=== PATIENT | female | born 1990 | race Caucasian/White ===

== ENCOUNTER 2020-04-15 14:40 | Emergency (ER) | payer SELFPAY ==
[2020-04-15] VITALS (7 sets, daily range): BP systolic 102–116; BP diastolic 45–83; PULSE 67–89; RESP 14–18; TEMP 36.6–37.1; O2SAT 99–100; BMI 20.3
--- NOTE | 2020-04-15 16:44 | ED_ITS ---
HPI - General: Chief complaint: Vaginal Bleeding Stated complaint: cramping and bleeding Time Seen by Provider: 04/15/20 16:25 History of Present Illness: HPI Narrative: This patient is a 29-year-old female who is a G2, P4 presenting today with vaginal bleeding. Her last normal period was in January. She took a test at the end of February and it was positive. She has not seen a doctor yet and is trying to get her Medicaid set up. She has not been having vomiting or fever. No urinary symptoms. She had some bright red bleeding today for the past 3 hours. She is had some cramping in her pelvis. MD Complaint: vaginal bleeding Onset (ago): hour(s) (3) Pain Consistency: constant Location: pelvis Severity: mild Quality: Cramping Radiation: pelvis Associated symptoms: Reports abdominal pain; Deny headache(s), malaise, nausea or vomiting Review of Systems General: Reports: 10 or more systems reviewed and unremarkable except in HPI and below Const: Denies: fever(s), chills, fatigue or malaise Eyes: Denies: change in vision ENMT: Denies: odynophagia Card: Denies: chest pain or swelling of feet/ankles Resp: Denies: dyspnea, productive cough or non-productive cough GI: Reports: abdominal pain; Denies: nausea or vomiting : Reports: vaginal bleeding; Denies: flank pain or difficulty voiding Musc: Denies: neck pain or back pain Skin/Breast: Denies: rash Neuro: Denies: headache(s), numbness in extremities or weakness in extremities Rajiv/Lymph: Denies: easy bruising or easy bleeding Physical Exam Const: COMMON NORMALS: no acute distress, patient oriented x3, no limitations and alert GENERAL APPEARANCE: cooperative and comfortable HENMT: HEAD & SCALP: normal to inspection FACE & SINUS: normal facial exam Eye: GENERAL EYE: appearance normal, both eyes and all related structures Neck/C-Spine: COMMON NORMALS: supple, no meningeal signs and no JVD Chest: COMMONS NORMALS: normal inspection of the chest Resp: COMMON NORMALS: normal respiratory effort, No use of accessory muscles and clear to auscultation bilaterally AUSCULTATION: clear to auscultation bilaterally Cardio: COMMON NORMALS: no JVD, regular rate, regular rhythm and No murmurs present (Cardio) RATE: regular rate RHYTHM: regular rhythm GI: COMMON NORMALS: Normal to inspection, nondistended, normoactive bowel sounds present, Soft to palpation and non-tender INSPECTION: Yes normal to inspection AUSCULTATION: Yes normoactive bowel sounds PALPATION: Yes Soft to palpation Back/Pelvis: COMMON NORMALS: thoracic and lumbar spine normal to inspection Extremity: COMMON NORMALS: normal to inspection Neuro: COMMON NORMALS: patient oriented x3, moves all extremities, no focal motor deficits and no sensory deficits noted SENSORIUM/ORIENTATION: Yes alert MENINGEAL SIGNS: Yes no meningeal signs Psych: COMMON NORMALS: mental status grossly normal, cooperative and normal affect Skin: COMMON NORMALS: no rashes or lesions noted and turgor normal GENERAL SKIN EXAM: no rashes or lesions noted and turgor normal Course ED course: Ultrasound shows an 11 weeks 0-day with good heartbeat. No abnormalities noted on ultrasound. The patient thinks that she has gotten RhoGam before with prior pregnancies. I could not find any record of her blood type even on the OB notes from her prior . I suspect she is going to be negative and I have RhoGam ordered pending test results. Urinalysis showed trichomoniasis and this was discussed with the patient and her partner. Treatment was provided and she understands that she needs to follow-up with her OB as soon as possible. She plans to go to [facility]. Vital Signs: Vital signs: Vital Signs Temperature 98.7 F 04/15/20 22:20 Pulse Rate 89 04/15/20 22:34 Respiratory Rate 18 04/15/20 22:34 Blood Pressure 116/83 04/15/20 22:34 Pulse Oximetry 99 04/15/20 22:34 MDM - OB/Uterine Contractions Lab Data: Labs: Lab Results 04/15/20 04/15/20 04/15/20 Range/Units 17:00 17:00 17:38 WBC 9.1 (4.0-10.0) 10^3/ uL RBC 4.41 (4.1-5.3) 10^6/u L Hgb 13.0 (11.5-15.3) g/dL Hct 38.6 (37.0-47.0) % MCV 87.5 (81-99) fL MCH 29.5 (28.0-34.0) pg MCHC 33.7 (30.0-36.0) g/dL RDW 12.1 (12.1-15.1) % Plt Count 233 (130-400) 10^3/c mm MPV 8.7 (7.4-10.4) fL Neut % (Auto) 64.3 % Lymph % (Auto) 29.0 % [place] % (Auto) 5.7 % Eos % (Auto) 0.5 % Baso % (Auto) 0.2 % Neut # (Auto) 5.84 (1.8-7.7) 10^3/u L Lymph # (Auto) 2.6 (0.8-4.8) 10^3/u L [place] # (Auto) 0.5 (0.2-0.9) 10^3/u L Eos # (Auto) 0.1 (0.0-0.8) 10^3/u L Baso # (Auto) 0.0 (0.0-0.1) 10^3/u L Nucleated RBC % (a uto) 0 % Nucleated RBCs # 0.0 /100WBC Sodium 136 (136-145) mmol/L Potassium 4.0 (3.5-5.1) mmol/L Chloride 102 (98-107) mmol/L Carbon Dioxide 24 (22-29) mmol/L Anion Gap 14.0 (5-19) BUN 7 (6-20) mg/dL Creatinine 0.5 (0.5-0.9) mg/dL GFR Calculation 148.0 H (90-130) mL/min Glucose 91 (65-115) mg/dL Calculated Osmolal ity 277 L (285-295) mOsm/k g Calcium 9.8 (8.5-10.5) mg/dL Total Bilirubin 0.4 (0.15-1.2) mg/dL AST 15 (0-32) U/L ALT 7 (0-33) U/L Alkaline Phosphata se 49 (35-105) IU/L Total Protein 7.4 (6.6-8.7) g/dL Albumin 4.4 (3.5-5.2) g/dL Globulin 3.0 (1.3-4.6) g/dL Ser , [place] 52658.00 mIU/mL Urine Color Yellow (Yellow) Urine Appearance Cloudy (CLEAR) Urine pH 6 (5-7) Ur Specific Gravit y 1.025 (1.005-1.030) Urine Protein Neg (Negative) Urine Glucose (UA) Norm (Normal) Urine Ketones Negative (Negative) Urine Blood 3+ H (Negative) Urine Nitrate Negative (Negative) Urine Bilirubin Neg (NEGATIVE) Urine Urobilinogen 1 H (Negative) mg/dL Ur Leukocyte Rosemary ase 1+ H (Negative) Urine RBC Too numerous to c nt H (0-2) /hpf Urine WBC 15-25 H (0-5) /hpf Ur Squamous Epith Cells 5-10 H (0-5) Amorphous Sediment Not Reportable Urine Bacteria 3+ H (NONE) Urine Trichomonas 1+ H Blood Type Rho(D) Type Antibody Screen 04/15/20 Range/Units 19:45 WBC (4.0-10.0) 10^3/ uL RBC (4.1-5.3) 10^6/u L Hgb (11.5-15.3) g/dL Hct (37.0-47.0) % MCV (81-99) fL MCH (28.0-34.0) pg MCHC (30.0-36.0) g/dL RDW (12.1-15.1) % Plt Count (130-400) 10^3/c mm MPV (7.4-10.4) fL Neut % (Auto) % Lymph % (Auto) % [place] % (Auto) % Eos % (Auto) % Baso % (Auto) % Neut # (Auto) (1.8-7.7) 10^3/u L Lymph # (Auto) (0.8-4.8) 10^3/u L [place] # (Auto) (0.2-0.9) 10^3/u L Eos # (Auto) (0.0-0.8) 10^3/u L Baso # (Auto) (0.0-0.1) 10^3/u L Nucleated RBC % (a uto) % Nucleated RBCs # /100WBC Sodium (136-145) mmol/L Potassium (3.5-5.1) mmol/L Chloride (98-107) mmol/L Carbon Dioxide (22-29) mmol/L Anion Gap (5-19) BUN (6-20) mg/dL Creatinine (0.5-0.9) mg/dL GFR Calculation (90-130) mL/min Glucose (65-115) mg/dL Calculated Osmolal ity (285-295) mOsm/k g Calcium (8.5-10.5) mg/dL Total Bilirubin (0.15-1.2) mg/dL AST (0-32) U/L ALT (0-33) U/L Alkaline Phosphata se (35-105) IU/L Total Protein (6.6-8.7) g/dL Albumin (3.5-5.2) g/dL Globulin (1.3-4.6) g/dL Ser , Mellisa i-Qnt mIU/mL Urine Color (Yellow) Urine Appearance (CLEAR) Urine pH (5-7) Ur Specific Gravit y (1.005-1.030) Urine Protein (Negative) Urine Glucose (UA) (Normal) Urine Ketones (Negative) Urine Blood (Negative) Urine Nitrate (Negative) Urine Bilirubin (NEGATIVE) Urine Urobilinogen (Negative) mg/dL Ur Leukocyte Rosemary ase (Negative) Urine RBC (0-2) /hpf Urine WBC (0-5) /hpf Ur Squamous Epith Cells (0-5) Amorphous Sediment Urine Bacteria (NONE) Urine Trichomonas Blood Type B Negative Rho(D) Type Negative Antibody Screen Negative Discharge Plan Discharge Patient Disposition: Home Clinical Impression: Threatened , Trichomonal vaginitis during in first trimester Condition: Stable Prescriptions: New metronidazole 500 mg tablet 500 mg PO BID 7 Days Qty: 14 RF: 0 Discharge Orders: Discharge Order (Routine); Ordered 04/15/20 Ordered By: Ethel Smith Discharge Diet: Usual diet Discharge Activity: Resume usual activity Patient Instructions: Threatened Miscarriage (ED), Trichomoniasis (ED) Activity Restrictions/Additional Instructions: Sexual partners need to be treated for trichomonas as well to prevent reinfection. Make sure you take all the antibiotics as prescribed. Infection can be associated with miscarriages. Establish care with an OB as soon as possible. Return to the emergency department for any new or worse symptoms. Discharge Date/Time: 04/15/20 22:30 Coding Level of Care Code ED Pollution Control Chemist for Kosta Fwd Exam Comprehensive
[2020-04-15 17:11] LABS: Basophils % 0.2 %; Eosinophils # 0.1 10^3/uL (0.0-0.8); Eosinophils % 0.5 %; Hematocrit 38.6 % (37.0-47.0); Lymphocytes # 2.6 10^3/uL (0.8-4.8); Mean Corpuscular HGB Conc 33.7 g/dL (30.0-36.0); Mean Corpuscular Hemoglobin 29.5 pg (28.0-34.0); Mean Corpuscular Volume 87.5 fL (81-99); Mean Platelet Volume 8.7 fL (7.4-10.4); Monocytes # 0.5 10^3/uL (0.2-0.9); Monocytes % 5.7 %; Neutrophils # 5.84 10^3/uL (1.8-7.7); Neutrophils % 64.3 %; Nucleated Red Blood Cells % 0 %; Platelet Count 233 10^3/cmm (130-400); Red Blood Count 4.41 10^6/uL (4.1-5.3); Red Cell Distribution Width 12.1 % (12.1-15.1); White Blood Count 9.1 10^3/uL (4.0-10.0)
[2020-04-15 17:43] LABS: Alanine Aminotransferase 7 U/L (0-33); Albumin Level 4.4 g/dL (3.5-5.2); Alkaline Phosphatase 49 IU/L (35-105); Aspartate Amino Transferase 15 U/L (0-32); Blood Urea Nitrogen 7 mg/dL (6-20); Calcium 9.8 mg/dL (8.5-10.5); Carbon Dioxide 24 mmol/L (22-29); Chloride 102 mmol/L (98-107); Glucose 91 mg/dL (65-115); Osmolality Calculated 277 mOsm/kg (285-295); Sodium 136 mmol/L (136-145); Total Bilirubin 0.4 mg/dL (0.15-1.2); Total Protein 7.4 g/dL (6.6-8.7)
[2020-04-15 17:55] LABS: Add Urine Microscopic? YES; Bilirubin Urine Neg (NEGATIVE); Blood Urine 3+ (Negative); Glucose Urine UA Norm (Normal); Ketones Urine Negative (Negative); Leukocyte Esterase Urine 1+ (Negative); Nitrate Urine Negative (Negative); Protein Urine Neg (Negative); Specific Gravity, Urine 1.025 (1.005-1.030); Urine Appearance Cloudy (CLEAR); Urine Color Yellow (Yellow); Urobilinogen Urine 1 mg/dL (Negative); pH Urine 6 (5-7)
[2020-04-15 17:56] LABS: RBC Urine TOO NUMEROUS TO CNT /hpf (0-2); WBC Urine 15-25 /hpf (0-5)
[2020-04-15 17:57] LABS: Add Urine Culture? Yes; Bacteria Urine 3+; Trichomonas Urine 1+
--- NOTE | 2020-04-15 18:31 | US_ITS ---
WS: [id number] OB ultrasound, 04/15/2020 Clinical Data: bleeding, cramping Comparison: None. Findings: There is a single interuterine . heart rate is 176 beats per minute. There is a yolk sac present. The crown-rump length measured 4.1 cm. The estimated gestational age 11w0d is with an HUNTER of approximately 11/04/2020. US/US OB <= 14 weeks fetus [id number] Impression: 1. Single interuterine . 2. Estimated gestational age of 11w0d with an HUNTER of 11/04/2020. 3. heart rate 176 beats per minute.
== END 2020-04-15 22:30 | disposition home or self-care (01) ==
PROVIDERS: Emergency Provider Emergency Medicine
DX: O20.0 Threatened abortion (principal); O98.311 Other infections with a predominantly sexual mode of transmission complicating pregnancy, first trimester; A59.01 Trichomonal vulvovaginitis; Z3A.11 11 weeks gestation of pregnancy
CPT/HCPCS: 12345; 36415; 76801; 80053; 81001; 84702; 85025; 86850; 86900; 87086; 90384; 99282; 99283

== ENCOUNTER 2020-10-30 23:43 | Inpatient (IN) | payer BC, MEDICAID, SELFPAY ==
[2020-10-30 23:35] VITALS: BMI 25.9
[2020-10-30 23:43] VITALS: PULSE 90; O2SAT 98
[2020-10-30 23:48] VITALS: PULSE 96; O2SAT 99
[2020-10-30 23:53] VITALS: PULSE 98; O2SAT 96
[2020-10-30] MEDS: dextrose 5%-lactated ringers 1,000 ML 125 ML IV (23:55)
[2020-10-30 23:58] VITALS: PULSE 87; O2SAT 99
[2020-10-30 23:59] VITALS: TEMP 36.3
[2020-10-31] VITALS (46 sets, daily range): BP systolic 91–126; BP diastolic 47–72; PULSE 59–104; RESP 14–20; TEMP 36.1–36.9; O2SAT 79–99
[2020-10-31] MEDS: oxytocin 30 UNIT/500 ML BAG 600 UNIT IV (00:17)
[2020-10-31 00:52] LABS: Basophils # 0.1 10^3/uL (0.0-0.1); Basophils % 0.3 %; Eosinophils % 0.1 %; Hematocrit 37.3 % (37.0-47.0); Hemoglobin 12.3 g/dL (11.5-15.3); Lymphocytes % 8.4 %; Mean Corpuscular Hemoglobin 28.3 pg (28.0-34.0); Mean Corpuscular Volume 85.9 fL (81-99); Mean Platelet Volume 9.5 fL (7.4-10.4); Monocytes # 1.3 10^3/uL (0.2-0.9); Monocytes % 5.4 %; Neutrophils # 20.44 10^3/uL (1.8-7.7); Neutrophils % 85.1 %; Nucleated Red Blood Cells % 0 %; Platelet Count 270 10^3/cmm (130-400); Red Blood Count 4.34 10^6/uL (4.1-5.3); Red Cell Distribution Width 12.4 % (12.1-15.1)
--- NOTE | 2020-10-31 01:13 | P.PCNOB_ITS ---
Delivery Note: Date of delivery: October 31, 2020 Pre-delivery diagnoses: 1. 3 para 2-0-0-2 2. 38 weeks estimated gestational age Post-delivery diagnoses: Status post spontaneous vaginal delivery Procedure: Spontaneous vaginal delivery Op report anesthesia: None Delivering Physician: Mack Bustamante Estimated blood loss (mL): 300 Pre-Delivery Course: The patient presented to the hospital at 8 cm dilated. I was then contacted and came to the hospital shortly thereafter. When I checked her she was found to have a bulging bag of fluid and a very stretchy 9 cm. An amniotomy was performed. The patient then pushed through the next 2 contractions uncontrollably. Delivery: DELIVERY: The patient progressed to complete without difficulty. She delivered a male with a weight of 5 pounds 5 ounces with Apgars of 7, 9. The baby was delivered from the HUMERA position and placed on the mother's abdomen. The baby's mouth and nose was then suctioned with a bulb syringe. The cord was then clamped and cut 1 minute after delivery. There was no nuchal cord. There was no meconium. The placenta and 2 vessel cord were delivered intact shortly thereafter. The perineum and vaginal vault were carefully examined. No lacerations were noted. Both the mother and the baby were in stable condition. A&P Assessment and plan (1) 38 weeks gestation of : Status: Acute (2) Spontaneous vaginal delivery: Status: Acute Coding Level of Care Code Acute Technician [employer] for Chg Fwd Diagnoses 38 weeks gestation of Z3A.38 Spontaneous vaginal delivery O80
[2020-10-31 01:16] LABS: Amphetamines Screen Urine Negative (Negative); Barbiturates Screen Urine Negative (Negative); Benzodiazepines Screen Urine Negative (Negative); Cocaine Screen Urine Negative (Negative); Opiate Screen Urine Negative (Negative); PCP Screen Urine Negative (Negative); THC Screen Urine Negative (Negative)
--- NOTE | 2020-10-31 01:17 | P.HP_ITS ---
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 She quickly progressed to complete and had an unremarkable delivery without anesthesia. She had heavier than normal bleeding after the delivery, but it did spontaneously resolve without further intervention. Earlier in her she expressed a desire to have a tubal ligation performed. She also signed the tubal ligation form over a month ago. We discussed the risks of bleeding, infection, and damage intra-abdominal organs. We discussed the 1 200 chance of becoming again after a tubal ligation. We discussed alternative forms of control. She had no further questions and wished to proceed. Her otherwise been unremarkable. Her labs have been unremarkable. She was GBS negative. Covid negative. Blood type was B-. She was THC positive with her initial drug screen but and subsequent drug screens was negative. 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 PFSH: Social History (Updated 10/31/20 @ 01:20 by Mack Bustamante MD) Substance/Drug Use: former Date of last use: THC positive on initial drug screen Vitals/I&O/Wt Last Vital Signs Temp 97.3 F L 10/30/20 23:59 Pulse 75 10/31/20 01:09 BP 103/59 10/31/20 01:09 Pulse Ox 79 L 10/31/20 00:12 10/30/20 10/30/20 10/31/20 14:59 22:59 06:59 Intake Total 300 / 300 Balance 300 / 300 Physical Exam Const: COMMON NORMALS: patient oriented x3 and alert HENMT: COMMON NORMALS: moist oral mucous membranes HEAD & SCALP: normal to inspection Chest: COMMONS NORMALS: normal inspection of the chest Resp: COMMON NORMALS: clear to auscultation bilaterally AUSCULTATION: clear to auscultation bilaterally Cardio: COMMON NORMALS: regular rate and regular rhythm RATE: regular rate RHYTHM: regular rhythm GI: INSPECTION: Yes normal to inspection and Yes other (Gravid) Extremity: COMMON NORMALS: normal to inspection GENERAL: Yes edema (Trace) Neuro: COMMON NORMALS: patient oriented x3, moves all extremities and no sensory deficits noted SENSORIUM/ORIENTATION: Yes alert Psych: COMMON NORMALS: mental status grossly normal Skin: COMMON NORMALS: no rashes or lesions noted GENERAL SKIN EXAM: no ra shes or lesions noted Data : 10/30/20 23:53 A&P Assessment and plan (1) Spontaneous vaginal delivery: Status: Acute (2) 38 weeks gestation of : Status: Acute (3) Sterilization consult: The patient will be n.p.o. Anticipate we will be doing sterilization at 9:00 in the morning. I discussed it with the hospital visor and she will notify the anesthesia provider as well as the surgical team. Status: Acute Attestations Medical Necessity Statement*: Routine and post tubal care. Anticipate she will go home tomorrow. Coding Level of Care Code Acute Reporting Coordinator for [employer] Diagnoses Spontaneous vaginal delivery O80 38 weeks gestation of Z3A.38 Sterilization consult Z30.09
[2020-10-31] MEDS: HYDROcodone-acetaminophen 5-325 mg Tablet PO ×3 (03:53→20:48)
--- NOTE | 2020-10-31 08:37 | ANES.PREANE2 ---
Pre-Anesthetic Assessment Pre-Anesthetic Assessment: Height/Weight: Height 1.57 m Weight 64.41 kg Temp Pulse Resp BP Pulse Ox 97.2 F L 69 18 95/47 97 10/31/20 05:24 10/31/20 06:18 10/31/20 05:45 10/31/20 06:18 10/31/20 06:18 Preop Diagnosis: female desiring sterilization Proposed Procedure: Operation Date: 10/31/20 09:10 Proposed Procedures p Post Bilateral Tubal Ligation(Bilateral) - Mack Bustamante MD Operation Date: 10/31/20 09:00 Proposed Procedures p Bilateral Tubal Ligation(Not Applicable) - Mack Bustamante MD Was Beta Kirby taken within 24 hours: N/A Social: Social History: Tobacco and No alcohol Exam: Pre-Anes Outpt Exam: alert, oriented x 3, clear to auscultation bilaterally and regular rate & rhythm Airway: Submandibular: WNL Cervical ROM: WNL MP: 2 Dentition: False Pulmonary: Pulmonary: COPD Anesthetic Plan: ASA status: 2 Anesthesia: General Other: Risk of > 500 ml blood loss (7ml/kg in children): No Meds/Allergies Current Medications: Current Medications Generic Name Dose Route Start Last Admin Trade Name Freq PRN Reason Stop Dose Admin Hydrocodone Bitart /Acetaminophen 1 - 2 tab 10/31/20 01:46 10/31/20 03:53 Hydrocodone-Acet aminophen 5-325 Mg Tablet PO 1 tab Q6H PRN Administration MODERATE TO SEVER E PAIN PFSH Anesthesia PFSH: Social History (Updated 10/31/20 @ 01:20 by Mack Bustamante MD) Substance/Drug Use: former Date of last use: THC positive on initial drug screen Female Reproductive History: : 3 Data Anesthesia CBC & Chem 7: 10/30/20 23:53 Other Labs: Laboratory Results - last 48 hr 10/30/20 10/30/20 23:30 23:53 WBC 24.0 H RBC 4.34 Hgb 12.3 Hct 37.3 MCV 85.9 MCH 28.3 MCHC 33.0 RDW 12.4 Plt Count 270 MPV 9.5 Neut % (Auto) 85.1 Lymph % (Auto) 8.4 [place] % (Auto) 5.4 Eos % (Auto) 0.1 Baso % (Auto) 0.3 Neut # (Auto) 20.44 H Lymph # (Auto) 2.0 [place] # (Auto) 1.3 H Eos # (Auto) 0.0 Baso # (Auto) 0.1 Nucleated RBC % (auto) 0 Nucleated RBCs # 0.0 Urine Opiates Screen Negative Ur Barbiturates Screen Negative Ur Phencyclidine Scrn Negative Ur Amphetamines Screen Negative U Benzodiazepines Scrn Negative Urine Cocaine Screen Negative U Marijuana (THC) Screen Negative Cardiac Studies: No Data to Display
[2020-10-31] MEDS: sodium chloride 0.9% 1,000 ML 30 ML IV (08:50)
--- NOTE | 2020-10-31 09:27 | P.OP_ITS ---
Operative Report Date of procedure: October 31, 2020 Pre-op Diagnosis: female desiring sterilization Post-op diagnosis: same Procedure Done: minilaparotomy bilateral tubal ligation using a modified Parvez technique Specimens removed/disposition: Bilateral fallopian tube segments with the right segment being tagged Pathology: other Pathology: Bilateral fallopian tube segments with the right segment being tagged Surgeon: Mack Bustamante Anesthesia: General Estimated blood loss (mL): 10 Condition: stable Disposition: floor (OB) Brief History: Refer to history and physical Procedure: The patient was brought back to the operating room where anesthesia was found to be adequate. 10 mL of 0.5% bupivacaine was then used to pre- anesthetize the area just inferior to the umbilicus. A #15 blade was then used to make a 3 cm transverse incision just inferior to the umbilicus. I then dissected down to the underlying subcutaneous tissue until arriving at the fascia. The fascia was then nicked with the scalpel. The fascial incision was extended manually. I identified the fundus of the uterus and followed it to the left fallopian tube. The fallopian tube was then followed to the fimbria. The tube was then ligated, cut, and cauterized in a modified [place] fashion using 0 chromic. The right fallopian tube was then identified and followed through to the fimbria. It was ligated, cut, and cauterized in similar fashion. The right fallopian tube was tagged. Both fallopian tubes had excellent hemostasis. The fascia was reapproximated using 0 Vicryl in running stitch. The subcutaneous tissue was carefully examined and no further bleeding was noted. The skin was then reapproximated using 4-0 Vicryl in a running subcuticular stitch. A sterile dressing was placed. All counts were correct x2. The patient was moved to the recovery room in stable condition.
--- NOTE | 2020-10-31 09:38 | SUR.PHASEI ---
pt sleeps quietly, with good resp effort no distress noted pt on 8l mask, vss abdomen is soft, 1 sites with steris D/I scds on .
--- NOTE | 2020-10-31 09:44 | SUR.PHASEI ---
pt awakes , alert verbalized discomfort to abdomen 1/10 denies nausea, vss.
[2020-10-31] MEDS: fentaNYL 50 mcg/mL INJ 2mL IVP (09:47)
--- NOTE | 2020-10-31 09:56 | SUR.PHASEI ---
0945 PT GRIMICING C/O OF CRAMPING PAIN TO ABD WARM BLANKETS TO ABD AND PT, SEE MED GIVEN FOR CONTINUED PAIN 0955 PT SLEEPS NOW WITH NO S/S OF PAIN , VSS.
--- NOTE | 2020-10-31 10:46 | ANE.PACU2 ---
Inpatient post-anesthesia follow up: Airway intact: Yes Vital signs: Temperature 97.7 F Pulse Rate 73 Respiratory Rate 14 Blood Pressure 105/64 Pulse Oximetry 94 Oxygen Delivery Me thod Room Air Oxygen Flow Rate 8 Fraction of Inspir ed Oxygen Hydration adequate: Yes Nausea and vomiting: No Pain level: 2 Mental status: Baseline
--- NOTE | 2020-10-31 11:29 | PC.NURSE ---
Addendum entered by Mckenna Eagle RN 10/31/20 11:49: PT TO OB FLOOR ROOM OB2 VIA BED Original Note: 1020 PT TO FLOOR VIA BED. PT WALKED A FEW STEPS TO BED. PT TOLERATED WELL. PT REORIENTED TO ROOM CALL LIGHT IN REACH.
--- NOTE | 2020-10-31 11:49 | PC.NURSE ---
0863 PT TO OR PER DEMETRIUS WHITNEY
[2020-10-31 14:19] LABS: Hematocrit 37.9 % (37.0-47.0); Hemoglobin 12.4 g/dL (11.5-15.3); Mean Corpuscular HGB Conc 32.7 g/dL (30.0-36.0); Mean Corpuscular Hemoglobin 28.1 pg (28.0-34.0); Mean Corpuscular Volume 85.7 fL (81-99); Mean Platelet Volume 9.4 fL (7.4-10.4); Platelet Count 264 10^3/cmm (130-400); Red Blood Count 4.42 10^6/uL (4.1-5.3); Red Cell Distribution Width 12.4 % (12.1-15.1); White Blood Count 24.3 10^3/uL (4.0-10.0)
[2020-10-31] MEDS: ibuprofen 800 mg tablet PO ×2 (14:23→20:47)
[2020-10-31] MEDS: docusate sodium 100 mg Capsule PO (17:38)
[2020-11-01 03:55] VITALS: BP 101/58; PULSE 66; RESP 16; TEMP 36.3; O2SAT 97
[2020-11-01] MEDS: HYDROcodone-acetaminophen 5-325 mg Tablet PO ×2 (06:36→15:54)
[2020-11-01] MEDS: docusate sodium 100 mg Capsule PO (08:35)
[2020-11-01] MEDS: prenatal vitamin Capsule 1 CAP PO (08:35)
[2020-11-01] MEDS: ibuprofen 800 mg tablet PO ×3 (08:35→15:55)
[2020-11-01 09:32] VITALS: TEMP 36.6
[2020-11-01 09:33] VITALS: BP 98/47; PULSE 63
--- NOTE | 2020-11-01 14:10 | PM.OBGYDC ---
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 Diagnoses at Discharge Discharge Diagnosis (1) Spontaneous vaginal delivery: Status: Acute (2) 38 weeks gestation of : Status: Acute (3) Sterilization consult: Status: Acute Reason for Visit Reason for Visit: CONTRACTIONS Hospital Course Hospital Course The patient presented to the hospital at 8 cm dilated and had her baby shortly thereafter. She desired a tubal and had a tubal later on that same day. , and post tubal, her bleeding has been within normal limits. Her pain is well controlled. There have been no concerns. Information Peripartum Data: Delivery Method: Vaginal Physical Exam Narrative: EXAM NARRATIVE: She is in no acute distress Lungs are clear auscultation bilaterally Her heart has a regular rate and rhythm Her fundus is below the umbilicus and firm Her dressing is clean, dry and intact Her extremities have trace edema Discharge Data Data Completed and Pending: Pending at discharge Category Date Time Status Pathology: Surgic al [PTH] Routine Pth 10/31/20 09:37 Ordered Labs from last 24 hours 10/31/20 13:55 WBC 24.3 H RBC 4.42 Hgb 12.4 Hct 37.9 MCV 85.7 MCH 28.1 MCHC 32.7 RDW 12.4 Plt Count 264 MPV 9.4 Vitals: Last Vital Signs Temp 97.9 F 11/01/20 09:32 Pulse 63 11/01/20 09:33 Resp 16 11/01/20 03:55 BP 98/47 11/01/20 09:33 Pulse Ox 97 11/01/20 03:55 Discharge Plan Discharge Patient Disposition: Home Condition: Stable Prescriptions: New ibuprofen 800 mg Tablet 800 mg PO TID Qty: 30 RF: 0 hydrocodone-acetaminophen 5-325 mg Tablet 1 - 2 tab PO Q6H PRN (Reason: Moderate To Severe Pain) Qty: 10 RF: 0 Continued 28 mg iron- 800 mcg Tablet PO RF: 0 Discharge Orders: Discharge Order (Routine); Ordered 11/01/20 Ordered By: Mack Bustamante Referrals: Mack Bustamante MD [Physician] - 7-10 days (Please set up appointment for check at 6 weeks as well) Discharge Diet: Usual diet Discharge Activity: Limit activity as instructed Discharge 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
[2020-11-01 15:34] VITALS: BP 105/67; PULSE 63; TEMP 36.2; TEMP 36.8
[2020-11-01 15:36] VITALS: BP 105/67; PULSE 63; RESP 16
--- NOTE | 2020-11-01 16:14 | PC.NURSE ---
Discussed giving 2 norco 5/325 and 1 800 mg ibuprofen to patient so she will be able to keep her pain under control until she is discharged, as patient reports she has no one who can bring her any medications to the hospital.
== END 2020-11-01 15:56 | disposition home or self-care (01) | DRG 798 ==
LOC: OPOB 10-31 00:38 → OBGYN 10-31 00:38
PROVIDERS: Admitting Provider Family Medicine; Visit Provider Family Medicine
PROC: 10E0XZZ Delivery of Products of Conception, External Approach (ICD-10-PCS; CPT 58605; principal; 2020-10-31 09:00)
DX: O80 Encounter for full-term uncomplicated delivery (principal); Z37.0 Single live birth; Z3A.38 38 weeks gestation of pregnancy; Z23 Encounter for immunization; Z30.2 Encounter for sterilization
CPT/HCPCS: 12345; 36415; 59409; 80306; 85025; 85027; 88302; 90471; 90686; 99211; J1100; J2250; J2405; J2704; J3010; J3490; J7030

== ENCOUNTER 2022-12-13 07:27 | Emergency (ER) | payer BC, MEDICAID, SELFPAY ==
[2022-12-13 07:31] VITALS: BP 117/71; PULSE 96; O2SAT 99; BMI 22.1
--- NOTE | 2022-12-13 07:41 | W.ED.EXTPRO ---
HPI - Extremity Problem General: Chief complaint: Extremity Injury, Upper Stated complaint: right chest pain Time Seen by Provider: 12/13/22 07:29 History of Present Illness: Patient is a 32-year-old female who comes to the ED with right extremity pain. Patient says symptoms started approximately 3 days ago. She states that she was cleaning her bathroom and after that started feeling pain. Pain is located on right lateral side of chest and right axillary region. Denies any other injury or trauma to cause pain. She states that any movement with her right arm causes worsening pain. Denies any chest pain, fevers, bladder or bowel symptoms. Past surgical history of tubal ligation. Associated symptoms: Deny chest pain, fever(s) or rash Review of Systems Const: Denies: fever(s), chills or fatigue Eyes: Denies: change in vision or eye discomfort ENMT: Denies: throat pain, odynophagia, nasal discharge or nasal congestion Card: Denies: chest pain, palpitations, edema, swelling of feet/ankles, dyspnea on exertion or orthopnea Resp: Denies: dyspnea, productive cough or non-productive cough GI: Reports: nausea; Denies: abdominal pain, vomiting, diarrhea, constipation or hematochezia : Denies: flank pain, dysuria or hematuria Musc: Reports: extremity pain (Right axillary); Denies: neck pain, back pain or extremity swelling Skin/Breast: Denies: rash or new lesions Neuro: Denies: headache(s), numbness in extremities or weakness in extremities PFS ED PFSH: Medical History (Updated 12/13/22 @ 07:54 by MILAN Thornton) No pertinent family history Surgical History (Updated 12/13/22 @ 07:45 by MILAN Thornton) H/O tubal ligation Social History (Updated 10/31/20 @ 01:20 by Mack Bustamante MD) Substance/Drug Use: former Date of last use: THC positive on initial drug screen Physical Exam Const: COMMON NORMALS: patient oriented x3 HENMT: COMMON NORMALS: normocephalic HEAD & SCALP: normocephalic MOUTH: Normal oral and palatal mucosa present THROAT: posterior oropharynx normal and uvula midline Neck/C-Spine: COMMON NORMALS: supple GENERAL: Yes normal visual inspection Resp: COMMON NORMALS: normal respiratory effort, No retractions, No use of accessory muscles and clear to auscultation bilaterally AUSCULTATION: clear to auscultation bilaterally Cardio: COMMON NORMALS: regular rate, regular rhythm, S1 normal heart sound present, S2 normal heart sound present, No gallops present (Cardio), No clicks present (Cardio), No murmurs present (Cardio) and Peripheral pulses 2+ throughout RATE: regular rate RHYTHM: regular rhythm HEART SOUNDS: S1 normal heart sound present and S2 normal heart sound present PERIPHERAL PULSES: Peripheral pulses 2+ throughout GI: COMMON NORMALS: Normal to inspection, nondistended, normoactive bowel sounds present, Soft to palpation, non-tender and no masses PALPATION: Yes Soft to palpation : COMMON NORMALS: Yes no CVA tenderness BLADDER/KIDNEY EXAM: Yes no CVA tenderness Back/Pelvis: COMMON NORMALS: no CVA tenderness Extremity: NARRATIVE EXTREMITY EXAM: Right shoulder?no visible deformity, swelling or tenderness noted. Full range of motion but endorses pain with abduction of right arm. Right axillary-soft tissue tenderness noted. No erythema, warmth or abscess seen. Latissimus dorsi muscular tenderness Neuro: COMMON NORMALS: patient oriented x3 GAIT: Yes Normal gait present Skin: GENERAL SKIN EXAM: dry skin Course Vital Signs: Vital signs: Vital Signs Pulse Rate 96 12/13/22 07:31 Blood Pressure 117/71 12/13/22 07:31 Pulse Oximetry 99 12/13/22 07:31 Oxygen Delivery Me thod Room Air 12/13/22 07:31 MDM - Extremity (Nontraumatic) Medical Decision Making Patient is a 32-year-old female who comes to the ED with right extremity pain. Patient says symptoms started approximately 3 days ago. She states that she was cleaning her bathroom and after that started feeling pain. Pain is located on right lateral side of chest and right axillary region. She states that any movement with her right arm causes worsening pain. Denies any chest pain, fevers, bladder or bowel symptoms. Past surgical history of tubal ligation. Vitals are stable. Right shoulder?no visible deformity, swelling or tenderness noted. Full range of motion but endorses pain with abduction of right arm. Right axillary-soft tissue tenderness noted. No erythema, warmth or abscess seen.Latissimus dorsi muscular tenderness. Patient was diagnosed with Toradol, muscle relaxer and nausea med. She was put in a shoulder sling. Patient sent home with a prescription for pain med and muscle relaxer. Told to follow-up with her PCP within the next week for reevaluation. Patient diagnosed with muscle strain of right shoulder region. apply cold pack on sore area multiple times a day to help with symptoms. Return to ED precautions given. Patient understood and agreed with plan. Discharge Plan Discharge Patient Disposition: Home Clinical Impression: Muscle strain of right shoulder region Qualifiers: Encounter type: initial encounter Qualified Code(s): S46.911A - Strain of unspecified muscle, fascia and tendon at shoulder and upper arm level, right arm, initial encounter Condition: Stable Prescriptions: New cyclobenzaprine 10 mg tablet 10 mg PO BID PRN (Reason: muscle spasm) Qty: 20 0RF ibuprofen 800 mg tablet 800 mg PO Q8H PRN (Reason: pain) Qty: 30 0RF No Action 28 mg iron- 800 mcg Tablet PO ibuprofen 800 mg Tablet 800 mg PO TID Qty: 30 0RF hydrocodone-acetaminophen 5-325 mg Tablet 1 - 2 tab PO Q6H PRN (Reason: Moderate To Severe Pain) Qty: 10 0RF Discharge Orders: Discharge ED (Routine); Ordered 12/13/22 Ordered By: Manpreet Hopkins Referrals: Mack Bustamante MD [Primary Care Provider] - Discharge Diet: Regular Discharge Activity: Increase activity as tolerated Activity Restrictions/Additional Instructions: Follow-up with medical provider as directed in the next 5 to 7 days for reevaluation. Wear shoulder sling for the next 2 to 3 days. take medications as prescribed. Apply cold pack on sore area for 10 to 15 minutes at a 4-5 times a day. Stretch muscles in and around sore area out daily as well. Return to the ER or your medical provider if condition worsens. Please read and understand discharge instructions. Thank you for choosing [facility] for your healthcare needs today. Please realize this is an emergency room and that we are providing you with a medical screening exam and this may not be complete and all inclusive of all the testing and or work up that you may need to determine your ailment or severity of your illness. It is very important that you follow up as instructed or that you return to the Emergency Department should you have concerns or if your condition changes or worsens in any way. Coding Level of Care Code ED News Operations Manager for Kosta Arvizu
[2022-12-13] MEDS: ketorolac 60 mg/2 mL INJ IM (07:51)
[2022-12-13] MEDS: ondansetron 2 mg/ML SDV 2 mL 4 MG IM (07:53)
[2022-12-13] MEDS: methocarbamol 750 mg Tablet PO (07:54)
[2022-12-13 08:00] VITALS: BP 95/52; PULSE 84; RESP 16; O2SAT 99
[2022-12-13 08:03] VITALS: BP 95/52; PULSE 84; RESP 16; O2SAT 99
== END 2022-12-13 08:05 | disposition home or self-care (01) ==
PROVIDERS: Emergency Provider Physician Assistant; PCP Family Medicine
DX: S46.911A Strain of unspecified muscle, fascia and tendon at shoulder and upper arm level, right arm, initial encounter (principal); X58.XXXA Exposure to other specified factors, initial encounter
CPT/HCPCS: 96372; 99284; J1885; J2405

== ENCOUNTER 2022-12-14 23:23 | Emergency (ER) | payer BC, MEDICAID, SELFPAY ==
[2022-12-14 23:31] VITALS: BP 99/46; PULSE 115; RESP 18; TEMP 36.4; O2SAT 100; BMI 22.1
[2022-12-14 23:43] VITALS: PULSE 112; RESP 16; O2SAT 100
--- NOTE | 2022-12-14 23:43 | XRR_ITS ---
PROCEDURE INFORMATION: Exam: XR Right Elbow Exam date and time: 12/14/2022 11:45 PM Age: 32 years old Clinical indication: Right; Patient HX: C/O RT elbow pain without injury TECHNIQUE: Imaging protocol: Radiologic exam of the right elbow. Views: 3 or more views. COMPARISON: No relevant prior studies available. FINDINGS: Bones/joints: Normal. Soft tissues: Normal. XR/XR elbow RT min 3V* [id number] IMPRESSION: No acute findings.
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
[2022-12-14 23:50] VITALS: BP 79/39
--- NOTE | 2022-12-14 23:54 | CTR_ITS ---
PROCEDURE INFORMATION: Exam: CT Right Upper Extremity With Contrast, Elbow Exam date and time: 12/15/2022 12:21 AM Age: 32 years old Clinical indication: Right; Patient HX: Severe elbow pain with inability to ambulate. ; Additional info: Pain swelling TECHNIQUE: Imaging protocol: Computed tomography of the right upper extremity with contrast. Exam focused on the elbow. Radiation optimization: All CT scans at this facility use at least one of these dose optimization techniques: automated exposure control; mA and/or kV adjustment per patient size (includes targeted exams where dose is matched to clinical indication); or iterative reconstruction. Contrast material: OMNI 350; Contrast volume: 100 ml; Contrast route: INTRAVENOUS (IV); REPORTING DATA: Count of CT and Cardiac NM exams in prior 12 months: This patient has received 0 known CTs and 0 known cardiac nuclear medicine studies in the 12 months prior to the current study. COMPARISON: CR ([facility], ) 12/14/2022 11:45 PM RADIATION DOSE METRICS: Total DLP (mGy-cm): 483.62 FINDINGS: Bones/joints: Normal. No acute fracture or dislocation. Soft tissues: Moderate to large amount of diffuse nonlocalized subcutaneous edema about the elbow without focal fluid collection, nonspecific, perhaps reflecting a cellulitis. CT/CT elbow RT w con [id number] IMPRESSION: 1. Negative for acute bony abnormality. 2. Moderate to large amount of diffuse nonlocalized subcutaneous edema about the elbow without focal fluid collection, nonspecific, perhaps reflecting a cellulitis.
[2022-12-14 23:55] VITALS: BP 80/44
[2022-12-15] MEDS: HYDROcodone-acetaminophen 5-325 mg Tablet 1 TAB PO (00:16)
[2022-12-15] MEDS: sodium chloride 0.9% 1,000 ML 999 ML IV (00:16)
[2022-12-15] MEDS: iohexol 350 mg/mL 500 mL Btl (per mL) IV (00:25)
[2022-12-15 00:27] LABS: Basophils # 0.1 10^3/uL (0.0-0.1); Basophils % 0.4 %; Eosinophils % 0.1 %; Hematocrit 38.3 % (37.0-47.0); Hemoglobin 13.1 g/dL (11.5-15.3); Lymphocytes # 0.7 10^3/uL (0.8-4.8); Lymphocytes % 4.2 %; Mean Corpuscular HGB Conc 34.2 g/dL (30.0-36.0); Mean Corpuscular Hemoglobin 29.4 pg (28.0-34.0); Mean Corpuscular Volume 86.1 fl (81-99); Mean Platelet Volume 9.6 fL (7.4-10.4); Monocytes # 1.5 10^3/uL (0.2-0.9); Monocytes % 9.5 %; Neutrophils # 12.67 10^3/uL (1.8-7.7); Neutrophils % 78.5 %; Nucleated Red Blood Cells % 0 %; Platelet Count 242 10^3/cmm (130-400); Red Blood Count 4.45 10^6/uL (4.1-5.3); Red Cell Distribution Width 12.6 % (12.1-15.1); White Blood Count 16.1 10^3/uL (4.0-10.0)
[2022-12-15 00:30] VITALS: BP 84/54
--- NOTE | 2022-12-15 00:31 | XRR_ITS ---
PROCEDURE INFORMATION: Exam: XR Chest Exam date and time: 12/15/2022 12:48 AM Age: 32 years old Clinical indication: Other: Hypotensive; Additional info: Arm pain TECHNIQUE: Imaging protocol: Radiologic exam of the chest. Views: 1 view. COMPARISON: No relevant prior studies available. FINDINGS: Lungs: Unremarkable. No consolidation. Pleural spaces: Unremarkable. No pleural effusion. No pneumothorax. Heart/Mediastinum: Unremarkable. No cardiomegaly. Bones/joints: Unremarkable. XR/XR chest 1V portable [id number] IMPRESSION: No acute findings.
[2022-12-15 00:43] LABS: Alanine Aminotransferase 48 U/L (0-33); Albumin Level 3.3 g/dL (3.5-5.2); Alkaline Phosphatase 107 U/L (35-105); Aspartate Amino Transferase 24 U/L (0-32); Blood Urea Nitrogen 25 mg/dL (6-20); Calcium 8.3 mg/dL (8.5-10.5); Carbon Dioxide 19 mmol/L (22-29); Chloride 92 mmol/L (98-107); Globulin 3.2 g/dL (1.3-4.6); Glomerular Filtration Rate 22.6 mL/min (90-130); Glucose 88 mg/dL (65-115); Osmolality Calculated 270 mOsm/kg (285-295); Sodium 128 mmol/L (136-145); Total Bilirubin 0.5 mg/dL (0.15-1.2); Total Protein 6.5 g/dL (6.6-8.7)
[2022-12-15 00:44] LABS: Lactic Sepsis W/Reflex 2.7 mmol/L (0.5-2.2)
[2022-12-15 00:59] VITALS: BP 86/53
[2022-12-15 00:59] LABS: Slide Review Slide Review Perform
--- NOTE | 2022-12-15 01:02 | ECG_ITS ---
[facility] Test Date: 2022-12-15 Pat Name: Karissa Foster Department: Room: Gender: Female Special Systems Technician: : 1990 Requested By: Padmaja Porter Order Number: [id number] Shant MD: Didier Kramer M.D. Measurements Intervals [place] Rate: 105 P: 79 AL: 108 QRS: 70 QRSD: 105 T: 48 QT: 345 QTc: 457 Interpretive Statements SINUS TACHYCARDIA WITH SHORT AL INTERVAL ABNORMAL RHYTHM ECG No previous ECG available for comparison Electronically Signed On 12-15-2022 16:13:11 CDT by Didier Kramer M.D. [id number]
[2022-12-15] MEDS: vancomycin 1,000 MG in sodium chloride 0.9% 250 ML 250 MG IV (01:10)
[2022-12-15 01:15] VITALS: BP 86/53
[2022-12-15 01:47] VITALS: BP 105/85; PULSE 104; RESP 26; O2SAT 100
[2022-12-15 02:10] LABS: Reflex Lactate Order REFLEX LACTIC ORDERD
== END 2022-12-15 02:14 | disposition left against medical advice (07) ==
PROVIDERS: Emergency Provider Emergency Medicine; PCP Family Medicine
DX: L03.113 Cellulitis of right upper limb (principal); I95.9 Hypotension, unspecified
CPT/HCPCS: 71045; 73080; 73201; 80053; 83605; 85025; 93005; 96361; 96365; 99285; J3370; J7030; J7050; Q9967

== ENCOUNTER → 2023-01-23 14:21 | Outpatient (BNVA) | payer BC, MEDICAID, SELFPAY | PROVIDERS: PCP Family Medicine; Visit Provider Nurse Practitioner Family | DX: L03.90 Cellulitis, unspecified (principal); Z51.89 Encounter for other specified aftercare | CPT/HCPCS: 80053; 85025 ==

== ENCOUNTER 2023-08-25 09:31 | Emergency (ER) | payer SELFPAY ==
[2023-08-25 09:49] VITALS: BP 128/78; PULSE 78; RESP 15; TEMP 36.7; O2SAT 99
[2023-08-25 10:21] LABS: Basophils % 0.3 %; Eosinophils # 0.1 10^3/uL (0.0-0.8); Eosinophils % 0.4 %; Hematocrit 49.8 % (36-47); Lymphocytes # 2.5 10^3/uL (0.8-4.8); Lymphocytes % 21.3 %; Mean Corpuscular HGB Conc 33.9 g/dL (30-55); Mean Corpuscular Hemoglobin 30.3 pg (27-33); Mean Corpuscular Volume 89.2 fl (85-98); Monocytes # 0.6 10^3/uL (0.2-0.9); Monocytes % 5.2 %; Neutrophils # 8.56 10^3/uL (1.8-7.7); Neutrophils % 72.5 %; Nucleated Red Blood Cells % 0 %; Platelet Count 211 10^3/cmm (157-399); Red Blood Count 5.58 10^6/uL (3.85-5.65); Red Cell Distribution Width 11.8 % (12.1-15.1); White Blood Count 11.81 10^3/uL (3.29-11.43)
[2023-08-25 10:41] LABS: HCG, Serum Qual Negative (Negative)
--- NOTE | 2023-08-25 13:21 | W.ED.FEMALGU ---
HPI - Female Genitourinary General: Chief complaint: Vaginal Bleeding Stated complaint: cramping, vaginal bleeding Time Seen by Provider: 08/25/23 09:36 Source: patient Mode of arrival: ambulatory Limitations: no limitations History of Present Illness: Patient is a 32-year-old female presents to ED today with a complaint of vaginal bleeding. Patient states she has normal menstrual cycles ranging from 28 to 32 days. She states normally she will bleed for approximately 3 days. Patient states with this menstrual cycle she has bled for 7 days. 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 She reports she was concerned because she has a history of stomach ulcers in the past. I did confirm that she is not having any rectal bleeding. She reports some mild abdominal cramping. Patient does have a history of tubal ligation. MD elicited complaint: vaginal bleeding Onset (ago): day(s) Severity: mild Quality of pain: cramping Vaginal discharge: none Vaginal bleeding: moderate and other (slowing today) Exacerbating factors: none Relieving factors: none Associated symptoms: Reports no associated symptoms; Deny abdominal pain, nausea or vaginal discharge Treatment prior to arrival: none Patient : No Review of Systems Const: Denies: fever(s), chills, body aches, fatigue or malaise Card: Denies: chest pain Resp: Denies: dyspnea GI: Denies: abdominal pain, nausea, vomiting or diarrhea : Reports: vaginal bleeding; Denies: flank pain, difficulty voiding, dysuria, urinary frequency, urinary urgency, urinary hesitancy or vaginal discharge Musc: Denies: back pain [facility] ED PFSH: Medical History Cellulitis No pertinent family history Surgical History H/O tubal ligation Social History Substance/Drug Use: former Date of last use: THC positive on initial drug screen Physical Exam Const: COMMON NORMALS: no acute distress, average body habitus, patient oriented x3, no limitations, alert and well nourished Resp: COMMON NORMALS: normal respiratory effort and clear to auscultation bilaterally AUSCULTATION: clear to auscultation bilaterally Cardio: COMMON NORMALS: regular rate and regular rhythm RATE: regular rate RHYTHM: regular rhythm GI: COMMON NORMALS: Normal to inspection, nondistended, normoactive bowel sounds present, Soft to palpation, non-tender, No hepatosplenomegaly present and no masses PALPATION: Yes Soft to palpation and Yes No hepatosplenomegaly present : COMMON NORMALS: Yes no CVA tenderness BLADDER/KIDNEY EXAM: Yes no CVA tenderness Back/Pelvis: COMMON NORMALS: no CVA tenderness Neuro: COMMON NORMALS: patient oriented x3 SENSORIUM/ORIENTATION: Yes alert Course Vital Signs: Vital signs: Vital Signs Temperature 98.0 F 08/25/23 09:49 Pulse Rate 66 08/25/23 13:36 Respiratory Rate 15 08/25/23 09:49 Blood Pressure 127/69 08/25/23 13:36 Pulse Oximetry 98 08/25/23 13:36 Oxygen Delivery Me thod Room Air 08/25/23 09:49 MDM - Female Medical Decision Making Patient appears in no acute distress. Her vital signs are perfect upon arrival. Blood work shows a normal hemoglobin. is negative. Exam non-surgical. She is not having any complaints of vaginal discharge or signs/symptoms concerning for PID. Explained to her how a stomach ulcer would be unrelated to vaginal bleeding. She is not having any epigastric pain. She does not complain of any black or tarry stools. There is no reason for emergent pelvic examination today. Bleeding has slowed today. Return to ED precautions given. Otherwise she can follow-up with Dr. Bustamante if bleeding persists. Lab Data 08/25/23 10:15 Laboratory Results WBC 11.81 10^3/uL (3.29-11.43) H 08/25/23 10:15 RBC 5.58 10^6/uL (3.85-5.65) 08/25/23 10:15 Hgb 16.90 g/dL (11.27-16.99) 08/25/23 10:15 Hct 49.8 % (36-47) H 08/25/23 10:15 MCV 89.2 fl (85-98) 08/25/23 10:15 MCH 30.3 pg (27-33) 08/25/23 10:15 MCHC 33.9 g/dL (30-55) 08/25/23 10:15 RDW 11.8 % (12.1-15.1) L 08/25/23 10:15 Plt Count 211 10^3/cmm (157-399) 08/25/23 10:15 MPV 9.0 fL (7.4-10.4) 08/25/23 10:15 Neut % (Auto) 72.5 % 08/25/23 10:15 Lymph % (Auto) 21.3 % 08/25/23 10:15 [place] % (Auto) 5.2 % 08/25/23 10:15 Eos % (Auto) 0.4 % 08/25/23 10:15 Baso % (Auto) 0.3 % 08/25/23 10:15 Neut # (Auto) 8.56 10^3/uL (1.8-7.7) H 08/25/23 10:15 Lymph # (Auto) 2.5 10^3/uL (0.8-4.8) 08/25/23 10:15 [place] # (Auto) 0.6 10^3/uL (0.2-0.9) 08/25/23 10:15 Eos # (Auto) 0.1 10^3/uL (0.0-0.8) 08/25/23 10:15 Baso # (Auto) 0.0 10^3/uL (0.0-0.1) 08/25/23 10:15 Nucleated RBC % (auto) 0 % 08/25/23 10:15 Nucleated RBCs # 0.0 /100WBC 08/25/23 10:15 HCG, Qual Negative (Negative) 08/25/23 10:15 No radiology studies performed this visit Discharge Plan Discharge Patient Disposition: Home Clinical Impression: Vaginal bleeding Condition: Stable Prescriptions: No Action 28 mg iron- 800 mcg Tablet PO ibuprofen 800 mg Tablet 800 mg PO TID Qty: 30 0RF hydrocodone-acetaminophen 5-325 mg Tablet 1 - 2 tab PO Q6H PRN (Reason: Moderate To Severe Pain) Qty: 10 0RF cyclobenzaprine 10 mg tablet 10 mg PO BID PRN (Reason: muscle spasm) Qty: 20 0RF ibuprofen 800 mg tablet 800 mg PO Q8H PRN (Reason: pain) Qty: 30 0RF Discharge Orders: Discharge ED (Routine); Ordered 08/25/23 Ordered By: Kalani Mccullough Referrals: Mack Bustamante MD [Primary Care Provider] - Activity Restrictions/Additional Instructions: As we discussed continue to monitor bleeding. If bleeding subsides over the next few days follow-up most likely is not indicated. If bleeding continues you may follow-up with your primary care provider as we discussed. You may return to the emergency department for any severe abdominal or pelvic pain, severe or heavy bleeding (soaking more than 1 pad an hour), or any other concerns you may have. Coding Level of Care Code ED Service Specialist for Kosta Arvizu
[2023-08-25 13:36] VITALS: BP 127/69; PULSE 66; O2SAT 98
== END 2023-08-25 13:36 | disposition home or self-care (01) ==
PROVIDERS: Emergency Provider Physician Assistant; PCP Family Medicine
DX: N93.9 Abnormal uterine and vaginal bleeding, unspecified (principal)
CPT/HCPCS: 84703; 85025; 99283

== ENCOUNTER 2024-05-19 11:10 | Emergency (ER) | payer BC, MEDICAID, SELFPAY ==
[2024-05-19 11:15] VITALS: BP 133/81; PULSE 91; RESP 17; TEMP 36.7; O2SAT 97; BMI 23.9
[2024-05-19 12:54] LABS: HCG Qualitative Urine. Negative (Negative)
[2024-05-19 12:59] LABS: Bilirubin Urine 1+ (Negative); Blood Urine Negative (Negative); Glucose Urine UA Negative (Normal); Ketones Urine Trace (Negative); Leukocyte Esterase Urine 2+ (Negative); Nitrate Urine Negative (Negative); Protein Urine 1+ (Negative); Urine Appearance Turbid (CLEAR); Urine Color Dark Yellow (Yellow)
[2024-05-19 13:02] LABS: Add Urine Microscopic? YES; Bacteria Urine 2+ /hpf; Hyaline Casts Urine 7.85 /lpf; Squamous Epithelial Cell Urine 21-50 /hpf (0-5); WBC Urine >100 /hpf (0-5)
[2024-05-19 13:25] LABS: Specific Gravity, Urine 1.037 (1.005-1.030)
[2024-05-19 13:34] LABS: UA Slide Review UA Slide Review Perf
--- NOTE | 2024-05-19 14:06 | ED_ITS ---
HPI - Female Genitourinary General: Chief complaint: Urogenital-Female Stated complaint: pain Time Seen by Provider: 05/19/24 13:31 Source: patient Mode of arrival: ambulatory Limitations: no limitations History of Present Illness: 33-year-old female states that she had h ad sex earlier this week and since then she has been having vaginal pain along with dysuria and some slight discharge. She denies any fever denies any vomiting or diarrhea. She denies any worsening improving factors. Associated symptoms: Deny abdominal pain, headache(s) or nausea Date of Last Menstrual Period: 05/05/24 Related Data Home Medications Medication Instructions Recorded Confirmed vit no.95-ferrous tab PO 10/31/20 02/06/23 fumarate 28 mg-folic acid 800 mcg tablet () Previous Rx's Medication Instructions Recorded hydrocodone 5 mg-acetaminophen 325 1 - 2 tab PO Q6H PRN Moderate To 11/01/20 mg tablet Severe Pain #10 tabs ibuprofen 800 mg tablet 800 mg PO TID #30 tabs 11/01/20 cyclobenzaprine 10 mg tablet 10 mg PO BID PRN muscle spasm #20 12/13/22 tabs ibuprofen 800 mg tablet 800 mg PO Q8H PRN pain #30 tabs 12/13/22 valacyclovir 1 gram tablet 1,000 mg PO BID 7 days #14 tabs 05/19/24 Allergies Allergy/AdvReac Type Severity Reaction Status Date / Time No Known Allergies Allergy Verified 08/25/23 09:54 Review of Systems Const: Denies: fever(s), chills, body aches or change in appetite ENMT: Denies: throat pain or dental pain Card: Denies: chest pain Resp: Denies: dyspnea GI: Denies: abdominal pain, nausea, vomiting or diarrhea : Reports: dysuria and vaginal odor Musc: Denies: neck pain or back pain Skin/Breast: Denies: rash Neuro: Denies: headache(s) PFSH ED PFSH: Medical History Cellulitis No pertinent family history Surgical History H/O tubal ligation Social History Substance/Drug Use: former Date of last use: THC positive on initial drug screen Female Reproductive History: Date of last menstrual period: 05/05/24 Physical Exam Const: COMMON NORMALS: no acute distress, patient oriented x3 and healthy appearing HENMT: COMMON NORMALS: normocephalic and atraumatic HEAD & SCALP: normocephalic and atraumatic Eye: COMMON NORMALS: conjunctivae normal CONJUNCTIVA: Yes conjunctivae normal Neck/C-Spine: COMMON NORMALS: full ROM and supple Chest: COMMONS NORMALS: normal inspection of the chest Resp: COMMON NORMALS: normal respiratory effort Cardio: COMMON NORMALS: regular rate, regular rhythm and No murmurs present (Cardio) RATE: regular rate RHYTHM: regular rhythm GI: COMMON NORMALS: Normal to inspection, nondistended, normoactive bowel sounds present, Soft to palpation, non-tender and no masses PALPATION: Yes Soft to palpation : OTHER: Slight discharge noted has ulcerative lesions on the vagina consistent with likely herpes Extremity: COMMON NORMALS: normal to inspection and full ROM Neuro: COMMON NORMALS: patient oriented x3, moves all extremities and no focal motor deficits Psych: COMMON NORMALS: mental status grossly normal, Normal thought process present and cooperative THOUGHT PROCESS: Normal thought process present Skin: COMMON NORMALS: no rashes or lesions noted and no wounds GENERAL SKIN EXAM: no rashes or lesions noted Course Vital Signs: Vital signs: Vital Signs Temperature 98.1 F 05/19/24 11:15 Pulse Rate 91 05/19/24 11:15 Respiratory Rate 17 05/19/24 11:15 Blood Pressure 133/81 05/19/24 11:15 Pulse Oximetry 97 05/19/24 11:15 Oxygen Delivery Me thod Room Air 05/19/24 11:15 MDM - Female Medical Decision Making Patient presents here with UTI along with likely new onset herpes we will start her on Valtrex she is already on Keflex she is to continue the Keflex did give her dose of azithromycin here as well. She is to follow-up with PCP and return if worsening she understands agrees to plan Lab Data Laboratory Results HCG, Qual Negative (Negative) 05/19/24 12:48 Urine Color Dark yellow (Yellow) A 05/19/24 12:40 Urine Appearance Turbid (CLEAR) A 05/19/24 12:40 Urine pH 6.0 (5-7) 05/19/24 12:40 Ur Specific [place] 1.037 (1.005-1.030) H 05/19/24 12:40 Urine Protein 1+ (Negative) A 05/19/24 12:40 Urine Glucose (UA) Negative (Normal) 05/19/24 12:40 Urine Ketones Trace (Negative) 05/19/24 12:40 Urine Blood Negative (Negative) 05/19/24 12:40 Urine Nitrate Negative (Negative) 05/19/24 12:40 Urine Bilirubin 1+ (Negative) H 05/19/24 12:40 Urine Urobilinogen 1.0 mg/dL (Negative) 05/19/24 12:40 Ur Leukocyte Esterase 2+ (Negative) A 05/19/24 12:40 Urine RBC 3-5 /hpf (0-2) 05/19/24 12:40 Urine WBC >100 /hpf (0-5) H 05/19/24 12:40 Ur Squamous Epith Cells 21-50 /hpf (0-5) 05/19/24 12:40 Amorphous Sediment Not Reportable 05/19/24 12:40 Urine Bacteria 2+ /hpf (NONE) H 05/19/24 12:40 Hyaline Casts 7.85 /lpf 05/19/24 12:40 No radiology studies performed this visit Discharge Plan Discharge Patient Disposition: Home Clinical Impression: Urinary tract infection, Herpes genitalis Condition: Stable Prescriptions: New valacyclovir 1 gram tablet 1,000 mg PO BID 7 Days Qty: 14 0RF No Action 28 mg iron- 800 mcg Tablet PO ibuprofen 800 mg Tablet 800 mg PO TID Qty: 30 0RF hydrocodone-acetaminophen 5-325 mg Tablet 1 - 2 tab PO Q6H PRN (Reason: Moderate To Severe Pain) Qty: 10 0RF cyclobenzaprine 10 mg tablet 10 mg PO BID PRN (Reason: muscle spasm) Qty: 20 0RF ibuprofen 800 mg tablet 800 mg PO Q8H PRN (Reason: pain) Qty: 30 0RF Discharge Orders: Discharge ED (Routine); Ordered 05/19/24 Ordered By: Padmaja Porter Referrals: Mack Bustamante MD [Primary Care Provider] - 1-3 days Discharge Diet: Advance as tolerated Discharge Activity: Resume usual activity Patient Instructions: Genital Herpes Infection (ED), Urinary Tract Infection in Women (ED) Coding Level of Care Code ED [facility] for Kosta Arvizu
[2024-05-19] MEDS: azithromycin 250 mg Tablet 1000 MG PO (14:15)
[2024-05-19 14:16] VITALS: BP 132/79; PULSE 81; O2SAT 96
[2024-05-21 12:48] LABS: Chlamydia Trachomatis RNA TMA DETECTED (NOT DETECTED); Neisseria Gonorrhoeae RNA, TMA NOT DETECTED (NOT DETECTED)
== END 2024-05-19 14:17 | disposition home or self-care (01) ==
PROVIDERS: Emergency Provider Emergency Medicine; PCP Family Medicine
DX: N39.0 Urinary tract infection, site not specified (principal); A60.00 Herpesviral infection of urogenital system, unspecified
CPT/HCPCS: 81001; 81025; 87491; 87591; 99283; Q0144